=== PATIENT | male | born 1995 | race Caucasian/White ===

== ENCOUNTER 2023-06-29 09:53 | Emergency (ER) | payer OTHER ==
[~2023-06-29] VITALS: Ht 175.3 cm; Wt 87.0 kg
[2023-06-29 09:58] VITALS: O2SAT 100
[2023-06-29] MEDS: KETOROLAC 15MG/ML VIAL IM ONE (10:45)
[2023-06-29] MEDS ORDERED: NAPR-1176 MT (12:40)
[2023-06-29] MEDS ORDERED: LIDO700A15 TP (12:40)
[2023-06-29 13:00] VITALS: BP 112/68; PULSE 74; RESP 17; TEMP 98.1
== END 2023-06-29 13:30 | disposition home or self-care (01) ==
LOC: ER 09:53
DX: S40.811A Abrasion of right upper arm, initial encounter (principal); V49.49XA Driver injured in collision with other motor vehicles in traffic accident, initial encounter; Y93.89 Activity, other specified; Y92.89 Other specified places as the place of occurrence of the external cause; Y99.8 Other external cause status
CPT/HCPCS: 73502; 71045; 71100; 73080; 73110; 96372; 99284; J1885; Z7610